=== PATIENT | female | born 1945 | race Caucasian/White ===

== ENCOUNTER 2018-01-13 05:51 | Day surgery (SDC) | payer MEDICARE ==
[~2018-01-13] VITALS: Ht 167.6 cm; Wt 68.9 kg
[~2018-01-13 05:51] MED LIST: ASPI-555 PO; BIOT5000 PO; ESOM40CA PO; FLUT1DIS4 IH; LISI-613 PO; LOVA10TA2 PO; LUTE20CA PO; METF500T6 PO; MULT-1077 PO; PREM625 PO; VITA100049 PO
[2018-01-13 06:08] VITALS: BP 143/62
[2018-01-13] MEDS ORDERED: SODIUM CHLORIDE 0.9% 1000ML 1,000 ML IV ONE (06:54)
[2018-01-13] MEDS ORDERED: PROPOFOL 10 MG/ML 20ML VIAL IV ONE ×2 (08:07→08:29)
[2018-01-13 08:35] VITALS: BP 88/40
== END 2018-01-13 09:03 | disposition home or self-care (01) ==
LOC: DAH 05:51 → ENDO 05:51
PROVIDERS: ATTEND Internal Medicine Gastroenterology
DX: K59.00 Constipation, unspecified (principal); K21.9 Gastro-esophageal reflux disease without esophagitis; I10 Essential (primary) hypertension; E11.9 Type 2 diabetes mellitus without complications; J45.909 Unspecified asthma, uncomplicated; Z80.0 Family history of malignant neoplasm of digestive organs
CPT/HCPCS: 45378; 82948 ×2; 93005; A4606; J2704 ×2; J7030